=== PATIENT | male | born 1965 | race Caucasian/White ===

== ENCOUNTER → 2017-12-18 | Outpatient (CLI) | payer OTHER ==
[~2017-12-18] MED LIST: CONRAY-43 43% 50ML VIAL (Q9960) As Ordered; PROHANCE 279.3MG/ML 15ML VIAL (A9576) As Ordered
== END ==
LOC: M RAD 16:47
DX: R91.8 Other nonspecific abnormal finding of lung field (principal); F17.200 Nicotine dependence, unspecified, uncomplicated
CPT/HCPCS: A9576

== ENCOUNTER → 2018-10-19 | Outpatient (REF) ==
[~2018-10-19] MED LIST changes: -CONRAY-43 43% 50ML VIAL (Q9960) As Ordered; +OXYC1TAB23 PO; -PROHANCE 279.3MG/ML 15ML VIAL (A9576) As Ordered
== END ==
LOC: M LAB 11:33
PROVIDERS: ATTEND Nurse Practitioner Adult Health
DX: Z00.00 Encounter for general adult medical examination without abnormal findings (principal)

== ENCOUNTER → 2021-03-16 | Outpatient (REF) ==
--- NOTE | 2021-03-16 14:30 | REP ---
INDICATION: TB COMPARISON: None. TECHNIQUE: PA and lateral. FINDINGS: The mediastinum and cardiac silhouette are normal. The lung verde are clear and without acute consolidation, effusion, or pneumothorax. The skeletal structures are intact and normal. IMPRESSION: No acute cardiopulmonary process. <Electronically signed by Tyrell Brady > 03/16/21 1422
== END ==
LOC: M PLAIMG 14:03
PROVIDERS: ATTEND Internal Medicine
DX: Z00.00 Encounter for general adult medical examination without abnormal findings (principal)

== ENCOUNTER 2025-01-10 09:38 | Emergency (ER) | payer OTHER ==
[~2025-01-10] VITALS: Ht 195.6 cm; Wt 134.4 kg
[2025-01-10] MEDS ORDERED: HYDR12.55 PO (09:46)
[2025-01-10] MEDS ORDERED: IBUP200T46 PO (09:46)
[2025-01-10 12:51] VITALS: BP 130/80; TEMP 98.7; O2SAT 100
== END 2025-01-10 12:57 | disposition home or self-care (01) ==
LOC: M ED 09:38
DX: M51.370 Other intervertebral disc degeneration, lumbosacral region with discogenic back pain only (principal); M51.360 Other intervertebral disc degeneration, lumbar region with discogenic back pain only; M51.34 Other intervertebral disc degeneration, thoracic region; M25.78 Osteophyte, vertebrae; K21.9 Gastro-esophageal reflux disease without esophagitis; I10 Essential (primary) hypertension; Z79.1 Long term (current) use of non-steroidal anti-inflammatories (NSAID); Z79.899 Other long term (current) drug therapy

== ENCOUNTER 2025-02-11 07:54 | Day surgery (SDC) | payer OTHER ==
[~2025-02-11] VITALS: Ht 195.6 cm; Wt 129.3 kg
[~2025-02-11 07:54] MED LIST changes: +ACET1TAB55 PO; +ACETAMINOPHEN 1000MG/100ML IV BAG As Ordered ONE; +HYDR12.55 PO; +IBUP200T46 PO; +KETOROLAC 30 MG/ML 1 ML VIAL As Ordered ONE; +LIDOCAINE 2% 100 MG/5 ML SDV (FOR ANES.) As Ordered ONE; +MIDAZOLAM INJ 2 MG/2 ML VIAL As Ordered ONE; +ONDANSETRON 4MG 2ML VIAL As Ordered ONE; +dexAMETHasone 4 MG/ML 1 ML VIAL As Ordered ONE
[2025-02-11] MEDS: LR 1,000 ML IV SCH (08:55)
[2025-02-11] MEDS: LIDOCAINE W/EPINEPHrine 1% 20 ML VIAL As Ordered ONE (09:01)
[2025-02-11] MEDS: IPRATROPIUM 0.5 MG/ALBUTEROL 2.5 MG INH SOL UD 3 ML NEB ONE (09:35)
[2025-02-11] MEDS: ceFAZolin SOD 3 GM in DEXTROSE 5% (D5W) MINI-BAG PLU 1... IV ONE (10:04)
[2025-02-11] MEDS ORDERED: ONDANSETRON 4MG 2ML VIAL IV PRN (11:00)
[2025-02-11 11:34] VITALS: BP 102/62; TEMP 97.2; O2SAT 98
== END 2025-02-11 12:01 | disposition home or self-care (01) ==
LOC: M SDC 07:54
PROVIDERS: ATTEND Plastic Surgery Surgery of the Hand
DX: C43.4 Malignant melanoma of scalp and neck (principal); I10 Essential (primary) hypertension; J30.2 Other seasonal allergic rhinitis; K21.9 Gastro-esophageal reflux disease without esophagitis; F17.210 Nicotine dependence, cigarettes, uncomplicated; Z79.899 Other long term (current) drug therapy
CPT/HCPCS: 11626; 12042; 88307; J0131; J0665; J0666; J0688; J1100; J1885; J2250; J2405; J3010